=== PATIENT | female | born 1960 | race African-American/Black ===

== ENCOUNTER 2018-01-03 07:14 | Inpatient (IN) | payer MEDICARE ==
[2018-01-02 12:07] LABS: BASOPHILS % 0.3 % (0.0-1.0); EOSINOPHILS # (AUTO) 0.1 (0.0-0.4); EOSINOPHILS % 0.7 % (0.0-6.0); HEMATOCRIT 40.3 % (34.2-44.1); HEMOGLOBIN 12.4 g/dL (12.0-16.0); LYMPHOCYTES # (AUTO) 2.9 (1.0-3.2); LYMPHOCYTES % 28.5 % (18.0-39.1); MEAN CORPUSCULAR HEMOGLOBIN 25.5 pg (28-32); MEAN CORPUSCULAR HGB CONC 30.8 g/dL (31-35); MEAN CORPUSCULAR VOLUME 82.8 fL (81-99); MONOCYTES # (AUTO) 0.6 (0.2-0.8); MONOCYTES % 5.8 % (4.4-11.3); NEUTROPHILS # (AUTO) 6.5 (2.1-6.9); NEUTROPHILS % 64.3 % (38.7-80.0); PLATELET COUNT 307 x10e3/uL (140-360); RED BLOOD COUNT 4.87 x10e6/uL (3.6-5.1); RED CELL DISTRIBUTION WIDTH 15.6 % (11.7-14.4)
[2018-01-02 12:25] LABS: ANION GAP 16.2 mmol/L (8-16); BLOOD UREA NITROGEN 8 mg/dL (7-26); BUN/CREATININE RATIO 9 (6-25); CALCIUM 9.9 mg/dL (8.4-10.2); CARBON DIOXIDE 28 mmol/L (22-29); CHLORIDE 97 mmol/L (98-107); CREATININE, SERUM 0.93 mg/dL (0.57-1.11); EST GLOMERULAR FILTRATION RATE > 60 ML/MIN (60-); GLUCOSE 92 mg/dL (74-118); POTASSIUM 3.2 mmol/L (3.5-5.1); SODIUM 138 mmol/L (136-145)
[~2018-01-03] VITALS: Ht 175.3 cm; Wt 146.1 kg
[~2018-01-03 07:14] MED LIST: AMOX TR-K CLV1 EAC2 PO; BREO ELLIPTA INH; DEXILANT60 MG PO; DYMISTA NASAL S23 GM; FLUOXETINE HCL40 MG PEG; GABAPENTIN300 MG PO; GABAPENTIN600 MG PO; HYDROCHLOROTHIA25 MG PO; LEVOCETIRIZINE D5 MG PO; LOSARTAN POTASS25 MG PO; MELOXICAM7.5 MG PO; METFORMIN HCL500 MG PO; METHYLPREDNISOLO4 M1 PO; METOPROLOL TART25 MG PO; MUCINEX DM ER1 EAC1 PO; MYRBETRIQ25 MG PO; TRIAMCINOLONE A15 G1 TOP; VITAMIN D32000 UNIT PO
--- OUTSIDE RECORDS SUMMARY | 2018-01-03 07:17 | XMS REPORT | Clinical Summary ---
Author Author [facility] [employer] Organization [facility] Address Unknown Phone Unavailable Care Team Providers Care Avian Keeper Name Role Phone Amy Elias MD PCP Allergies No Known Allergies Current Medications Prescription Sig. Disp. Refills Start End Date Status Date metoprolol tartrate Take 25 mg by mouth 2 Active (LOPRESSOR) 25 mg tablet (two) times a day. FLUoxetine (PROzac) 40 MG Take 40 mg by mouth Active capsule nightly. gabapentin (NEURONTIN) Take 600 mg by mouth Active 600 mg tablet nightly. hydroCHLOROthiazide Take 25 mg by mouth every Active (HYDRODIURIL) 25 MG morning. tablet cholecalciferol, vitamin Take 4,000 Units by mouth Active D3, (VITAMIN D3) 2,000 every morning. unit capsule capsule montelukast (SINGULAIR) Take 10 mg by mouth Active 10 mg tablet nightly. esomeprazole (NexIUM) 40 Take 40 mg by mouth daily Active MG capsule before breakfast. losartan (COZAAR) 25 MG Take 25 mg by mouth every Active tablet morning. metFORMIN (GLUCOPHAGE) Take 500 mg by mouth 2 Active 500 mg tablet (two) times a day with meals. mometasone (NASONEX) 50 1 spray into each nostril Active mcg/actuation nasal spray daily as needed. cetirizine (ZyrTEC) 10 MG Take 10 mg by mouth every Active tablet morning. gabapentin (NEURONTIN) Take 300 mg by mouth Active 300 mg capsule every morning. meloxicam (MOBIC) 7.5 mg Take 7.5 mg by mouth 2 Active tablet (two) times a day. mirabegron 25 mg tablet Take 25 mg by mouth Active extended release 24 hr daily. phentermine (ADIPEX-P) Take 37.5 mg by mouth Active 37.5 mg tablet daily. oxyCODone-acetaminophen Take 1 tablet by mouth Active (PERCOCET) 10-325 mg per daily as needed for tablet moderate pain. Active Problems Problem Noted Date Palpitations 05/07/2016 Chest pain 05/06/2016 Encounters Date Type Specialty Care Team Description 05/08/2017 Hospital Radiology Bandar Milligan MD Sinus pressure Encounter 05/02/2017 Transcribe Access Bandar Milligan MD Sinus pressure (Primary Orders Dx) after 01/02/2017 Social History Tobacco Use Types Packs/Day Years Used Date Never Smoker Tobacco Cessation: Counseling Given: No Alcohol Use Drinks/Week oz/Week Comments No Sex Assigned at Date Recorded Not on file Last Filed Vital Signs Not on file Plan of Treatment Health Maintenance Due Date Last Done Comments CERVICAL CANCER SCREENING 1981 BREAST CANCER SCREENING 2010 COLON CANCER SCREENING 2010 SHINGRIX VACCINE (#1) 2010 INFLUENZA VACCINE 10/04/2017 Implants Implanted Type Area Physical Therapy Teacher Device Expiration Model / Identifier Date Serial / Lot Spinal Fusion Procedures Procedure Name Priority Date/Time Associated Diagnosis Comments CT SINUS WO CONTRAST Routine 05/08/2017 Sinus pressure Results for this 11:28 AM GOVERNMENT CONTRACTS MANAGER procedure are in the results section. after 01/02/2017 Results * CT Sinus Wo Contrast (05/08/2017 11:28 AM) Narrative Performed At EXAMINATION: CT SINUS WO CONTRAST [facility] CLINICAL HISTORY: J34.89 Other specified disorders of nose and nasal sinuses, J34.89 COMPARISON:None TECHNIQUE: Axial noncontrast enhanced images were obtained through the paranasal sinuses. Bone and soft tissue windows were displayed as well as coronal and sagittal reconstructed images. CT imaging was performed with iterative reconstruction techniques and/or automated exposure control to reduce radiation dose. FINDINGS: Right sinuses and drainage pathways Frontal sinus and frontal recess:The frontal sinus is clear and the frontoethmoidal recesses patent. Maxillary sinus and ostiomeatal unit:Moderate-sized mucous retention cyst is noted inferiorly in the right maxillary sinus. A second tiny mucous retention cyst is noted along the lateral wall. The ostiomeatal unit is patent. Ethmoid sinuses:The ethmoid air cells are clear. Sphenoid sinus and recess:The sphenoid sinus is clear and the sphenoethmoidal recess is patent. 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 The left frontal sinus and frontal recess are clear. Maxillary sinus and ostiomeatal unit:The maxillary sinuses clear. The ostiomeatal unit is unremarkable. Ethmoid sinuses:The ethmoid air cells are clear. Sphenoid sinus and recess:The sphenoid sinus is clear and the sphenoethmoidal recess is patent. Other pertinent findings Nasal cavity:Nasal septum is grossly midline. Turbinates are normal with no evidence of palak bullosa. Orbits:The visualized orbits are intact with no gross morphologic abnormality identified. Anterior cranial fossa:The anterior cranial fossa is normal with no significant anatomic variation. IMPRESSION: Detailed CT sinus exam shows no significant mucosal thickening, drainage pathway obstruction or acute air-fluid level. There is no significant anatomic variation identified. [id number] Procedure Note Hm Interface, Radiology Results Incoming - 05/08/2017 12:09 PM GOVERNMENT CONTRACTS MANAGER EXAMINATION: CT SINUS WO CONTRAST CLINICAL HISTORY: J34.89 Other specified disorders of nose and nasal sinuses, J34.89 COMPARISON: None TECHNIQUE: Axial noncontrast enhanced images were obtained through the paranasal sinuses. Bone and soft tissue windows were displayed as well as coronal and sagittal reconstructed images. CT imaging was performed with iterative reconstruction techniques and/or automated exposure control to reduce radiation dose. FINDINGS: Right sinuses and drainage pathways Frontal sinus and frontal recess: The frontal sinus is clear and the frontoethmoidal recesses patent. Maxillary sinus and ostiomeatal unit: Moderate-sized mucous retention cyst is noted inferiorly in the right maxillary sinus. A second tiny mucous retention cyst is noted along the lateral wall. The ostiomeatal unit is patent. Ethmoid sinuses: The ethmoid air cells are clear. Sphenoid sinus and recess: The sphenoid sinus is clear and the sphenoethmoidal recess is patent. 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 The left frontal sinus and frontal recess are clear. Maxillary sinus and ostiomeatal unit: The maxillary sinuses clear. The ostiomeatal unit is unremarkable. Ethmoid sinuses: The ethmoid air cells are clear. Sphenoid sinus and recess: The sphenoid sinus is clear and the sphenoethmoidal recess is patent. Other pertinent findings Nasal cavity: Nasal septum is grossly midline. Turbinates are normal with no evidence of palak bullosa. Orbits: The visualized orbits are intact with no gross morphologic abnormality identified. Anterior cranial fossa: The anterior cranial fossa is normal with no significant anatomic variation. IMPRESSION: Detailed CT sinus exam shows no significant mucosal thickening, drainage pathway obstruction or acute air-fluid level. There is no significant anatomic variation identified. [id number] Performing Organization Address City/State/Zipcode Phone Number [facility] [address] [facility] [place] [address] after 01/02/2017 Insurance Payer Benefit Subscriber ID Type Phone Address Plan / Group MEDICAID MEDICAID xxxxxxxxx Medicaid MEDICARE MEDICARE xxxxxxxxxx Medicare [place] [address]
--- OUTSIDE RECORDS SUMMARY | 2018-01-03 07:17 | XMS REPORT ---
Author [facility] Address Unknown Phone Unavailable Care Team Providers Care Handbook Writer Name Role Phone UNKNOWN, REFFERING PP Unavailable MELLO FULTON Unavailable Unavailable Problems This patient has no known problems. Allergies, Adverse Reactions, Alerts This patient has no known allergies or adverse reactions. Medications This patient has no known medications. Encounters Start Date/Time End Date/Time Encounter Type Admission Type Attending Clinicians Care Facility Care Department Encounter ID 2017-03-08 07:58:00 2017-03-08 07:58:00 Outpatient C [facility] [id number] 2016-07-14 08:32:00 2016-07-14 08:32:00 Outpatient C [facility] [id number] Results Test Description Test Time Test Comments Text Results Atomic Results Result Comments US RETROPERITONEAL 2017-03-08 10:54:59 EXAM: ULTRASOUND RENALINDICATION: ACUTE CYSTITIS WITHOUT HEMATURIACOMPARISON: None available TECHNIQUE: Larry scale and color mode imaging of kidneys and bladder wasperformed. FINDINGS:Right kidney m easures 11.7 x 4.9 x 4.8 cm and left kidney 10.9 x 5.0 x4.6 cm in length. No renal cortical thinning or abnormal parenchymalechogenicity. No hydronephrosis or obvious nephrolithiasis. Nosuspicious masses are identified.Bladder is well distended with bilateral ureteral jets visualized.Prevoid bladder volume measures 172 mL. Post-void bladder volumemeasures 4 mL. IMPRESSION: 1. No hydronephrosis or ultrasonographic evidence for medical-renaldisease. LOCATION: 16 Chlamydia/GC Amplification 2017-03-02 08:50:00 Chlamydia trachomatis, NAHOMI (test jitm=[id number]) Negative Negative Neisseria gonorrhoeae, NAHOMI (test bgjy=[id number]) Negative Negative Culture, [id number] 08:38:00Specimen: Urine, CC-MidstreamCollected: 02/27/2017 23:50 Status: Final Last Updated: 03/02/2017 08:38 (1) ER Bed 5 Isolate (Final) (Final) 03/01/17 <10,000 CFU/mL Beta Hemolytic Streptococcus Streptococcus agalactiae US [id number] 05:41:04US TRANSVAGINALLocation:J3Hsvqk [facility] services provided 02/28/2017 5:41 AMIndica tion:L Ovary Pain, s/p hysterectomyComparison:CT abdomen and pelvis from earlier the same day.Technique: Transvaginal sonographic larry scale, color and Doppleri maging was performed to the female pelvis.Findings:Uterus: Surgically absentRigh t ovary: Not visualized.Left ovary: Normal in size, echogenicity and blood flow measuring 1.2 x0.8 x 1.26 cm.Cul-de-sac: No free fluidImpression: 1. Nonvisualiz ation of the right ovary.2. Normal left ovary.69526&PELVIS W/[id number] 01:54:36CT ABDOMEN&PELVIS W/CONTRASTLocation:K0Yprte hours services provided 02/28/2017 1:54 AMIndication: LLQ and suprapubic abdominal pain, hComparison:None availableTechnique: Axial CT images were acquired through the abdomen and pelvisfollowing the bolus administration of intravenous contrast. Sagittal andcoronal reformatted images are provided for interpretation. All CT scansat this facility use dose modulation, iterative reconstruction, and/orweight-based dosing when appropriate to reduce radiation dose to as lowas reasonably possible.Findings:Lower thorax: Lung bases are clearHepatobiliary: The liver is normal in size and density. No intrahepaticbiliary duct dilatation is seen. Status post cholecystectomy.Spleen, pancreas and adrenal glands: NormalUrogenital: The kidneys are normal in size and density with no evidenceof stone or hydronephrosis. The ureters are normal in course andcaliber. The urinary bladder appears normal. Status post hysterectomy.Gastrointestinal: Colonic diverticulosis with no evidence ofdiverticulitis. The appendix is normal. The bowel is normal in courseand caliber. No free air or free flui d.Lymph nodes and retroperitoneum: No adenopathy or retroperitoneal mass.Vascula ture:No acute abnormality.Bones and soft tissues: Multilevel advanced degenerati ve disc disease ofthe thoracolumbar spine with vacuum phenomenon, endplate scler osis anddisc space narrowing. Findings are most evident at L5/S1.Impression: 1. Colonic diverticulosis with no evidence of diverticulitis.2. Advanced multilevel degenerative disc disease as above.Comprehensive Metabolic [id number] 00:26:00* Test Item Value Reference Range Comments Sodium (test code=NA) 138 mmol/L 135-145 Potassium (test code=K) 3.8 mmol/L 3.5-5.1 Chloride (test code=CL) 100 mmol/L 98-105 Carbon Dioxide (test code=CO2) 29 mmol/L 22-29 Glucose (test code=GLU) 102 mg/dL 70-115 Blood Urea Nitrogen (test code=BUN) 15 mg/dL 6-20 Creatinine (test code=CREAT) 1.0 mg/dL 0.5-0.9 Calcium (test code=CA) 9.1 mg/dL 8.3-10.5 Prot Total (test code=TP) 7.4 g/dL 6.4-8.3 Albumin (test code=ALB) 3.8 g/dL 3.5-5.2 A/G Ratio (test code=AGRATIO) 1.1 Ratio Globulin (test code=GLOB) 3.6 2.9-3.1 Bili Total (test code=TBIL) <0.1 mg/dL 0.1-0.9 Alk Phos (test code=APHOS) 87 U/L 35-104 AST (test code=AST) 17 U/L 1-32 ALT (test code=ALT) 16 U/L 1-33 BUN/Creatinine Ratio (test code=BCRATIO) 15.0 Anion Gap (test code=AGAP) 9 mmol/L 7-16 Estimated GFR (test code=GFR) >60 mL/min/1.73m2 eGFR (estimated Glomerular Filtration Rate) is an estimated value,calculated from the patient's serum creatinine using the MDRD equation.It is NOT the patient's actual GFR. The eGFR provides a more clinicallyuseful measure of kidney disease than serum creatinine alone.This calculation takes sex and race into account, if the informationis provided. If the race is not provided, and the patient isAfrican-St Helenian, multiply by 1.212. If sex is not provided, and thepatient is female, multiply by 0.742. Results for patients <18 years ofage have not been validated by the MDRD study and should be interpretedwith caution.eGFR Result Interpretation:eGFR > or=60 is in the Normal RangeeGFR < 60 may mean kidney diseaseeGFR < 15 may mean kidney failureRanges recommended by the National Kidney Foundat ion,http://nkdep.nih.gov [id number] 00:26:00* Test Item Value Reference Range Comments Lipase (test code=LIP) 26 U/L 13-60 CBC with [id number] 00:14:00* Test Item Value Reference Range Comments WBC (test code=WBC) 7.9 K/cumm 4.4-10.5 RBC (test code=RBC) 4.55 M/cumm 3.75-5.20 Hemoglobin (test code=HGB) 11.1 gm/dL 12.2-14.8 Hematocrit (test code=HCT) 37.0 % 36.5-44.4 MCV (test code=MCV) 81.3 fL 80-100 MCH (test code=MCH) 24.5 pg 27.0-32.5 MCHC (test code=MCHC) 30.1 g/dL 32.0-37.5 RDW (test code=RDW) 15.1 % 11.5-14.5 Platelet Count (test code=PLTCT) 268 K/cumm 140-440 MPV (test code=MPV) 9.4 fL Diff Method (test code=DIFFM) Auto Neutrophil (test code=NEUT) 57.1 % 36-70 Lymphocyte (test code=LYMPH) 33.9 % 12-44 Monocyte (test code=MONO) 4.7 % 0-11 Eosinophil (test code=EOS) 3.8 % 0-7 Basophil (test code=BASO) 0.6 % 0-2 Neutro Abs (test code=ANEUT) 4.5 K/cumm 1.6-7.4 Lymph Abs (test code=ALYMPH) 2.7 K/cumm 0.5-4.6 [place] Abs (test code=AMONO) 0.4 K/cumm 0.0-1.2 Eos Abs (test code=AEOS) 0.30 K/cumm 0.00-0.74 Baso Abs (test code=ABASO) 0.1 K/cumm 0.00-0.21 Hypochromic (test code=HYPO) Moderate Urinalysis [id number] 00:10:00* Test Item Value Reference Range Comments Color (test code=COLOR) Yellow Yellow,Straw,Pl yellow Clarity (test code=CLAR) Clear Clear Specific [place] (test code=SPGR) 1.018 1.001-1.035 pH (test code=PH) 7.0 5.0-9.0 Ketone (test code=KET) Negative mg/dL Negative Glucose (test code=GLUCUR) Negative mg/dL Negative Protein (test code=PROT) Negative mg/dL Negative Bilirubin (test code=BILI) Negative mg/dL Negative Occult Blood (test code=UDOB) Negative Negative Urobilinogen (test code=UROB) 0.2 mg/dL 0.2-1.0 Nitrite (test code=NIT) Negative Negative Leuk Esterase (test code=LEUK) Negative Negative Micros Exam (test code=MEXAM) Not indicated
[2018-01-03] MEDS ORDERED: BUPIVACAINE 0.25% 30ML SDV INJ ONE (07:34)
[2018-01-03] MEDS ORDERED: HYDROGEN PEROXIDE 120 ML BTL ONE (07:35)
[2018-01-03] MEDS ORDERED: MULTIVITAMIN 50+ PO (07:42)
[2018-01-03] MEDS: LACTATED RINGER'S 1,000 ML IV SCH ×2 (09:11→18:46)
[2018-01-03] MEDS ORDERED: SCOPOLAMINE 1.5 MG PATCH TOP SCH (09:15)
[2018-01-03] MEDS ORDERED: ONDANSETRON HCL INJ 2 MG/ML VIAL IV PRN (09:15)
[2018-01-03] MEDS ORDERED: ONDANSETRON HCL INJ 2 MG/ML VIAL ONE ×2 (11:30→18:12)
[2018-01-03] MEDS ORDERED: HYDROMORPHONE 2MG/ML 2 MG/ML ML ONE (11:34)
[2018-01-03] MEDS ORDERED: METOCLOPRAMIDE HCL 10 MG/2ML VIAL ONE (11:43)
[2018-01-03 12:00] VITALS: BP 124/60
[2018-01-03 12:18] VITALS: BP 124/60
--- NOTE | 2018-01-03 12:41 | Operative Report ---
DATE OF PROCEDURE: January 03, 2018 PREOPERATIVE DIAGNOSES 1. Morbid obesity, body mass index 47. 2. Obstructive sleep apnea. 3. Type 2 diabetes mellitus. 4. Hypertension. POSTOPERATIVE DIAGNOSES 1. Morbid obesity, body mass index 47. 2. Obstructive sleep apnea. 3. Type 2 diabetes mellitus. 4. Hypertension. PREOP MEDICATIONS: Treat disease, prevent complications related to comorbid conditions of obesity. PROCEDURE PERFORMED: Laparoscopic sleeve gastrectomy (CPT 60906). ANESTHESIA: General. PRESS CLEANER: Cayden Coelho, Surgical Mailroom Coordinator. FLUIDS: 900 mL crystalloid. EBL: 35 mL. DRAINS: None. COMPLICATIONS: None. SPECIMENS: Partial stomach (not sent to pathology, but opened at the back table). GRAFTS: None. FINDINGS 1. Kvgrjgib-nq-mevkby adhesions in the lesser sac from the greater curvature of the stomach posteriorly. 2. Otherwise normal upper GI anatomy. 3. Negative intraoperative EGD leak test. PROCEDURAL DETAILS: The patient was brought to the operating room and was intubated under general endotracheal anesthesia. She was positioned supine with both arms abducted and all pressure points appropriately padded. She was sterilely prepped and draped in the usual fashion. A preprocedural pause was performed, identifying the patient and the use of perioperative antibiotics, the intended procedure, and the staff surgeon. A primary 5-mm left subcostal incision was made and a Veress needle was inserted to insufflate the abdomen to a pressure of 15 mmHg pressure. A 0-degree 5-mm Optiview trocar was placed under direct visualization. No injuries were noted. Four additional trocars were placed in the standard positions. The patient was then placed in a sleep reverse Trendelenburg position, and a liver retractor was placed to expose the proximal stomach and hiatus. I began the dissection by mobilizing the greater curvature of the stomach by ligating the gastroepiploic, short gastric, and posterior short gastric vessels all the way up to the left otis of the diaphragm. Of note, there was severe adhesive reaction between the posterior stomach and the area anterior to the pancreas as well as from the greater curvature of the stomach to the left upper quadrant. These adhesions were carefully lysed, being careful not to injure the stomach or any vascular structures. Once the stomach was completely mobilized, I then inserted an adult-size endoscope along the lesser curvature of the stomach to be used as a bougie. I then completed my sleeve gastrectomy by stapling off about 75% of the stomach, the greater curvature. I then conducted an intraoperative EGD leak test. No leaks were identified. The specimen was removed through the right periumbilical port site and was opened at the back table revealed no gross abnormalities. I then closed the large port site with 0 Vicryl suture using the Darwin-Elizabeth technique. Hemostasis was verified and the liver retractor was removed. I then desufflated the abdomen and removed the trocars. We then closed the incision site with a 4-0 Monocryl suture in a subcuticular fashion. We used 0.25% bupivacaine in both the preperitoneal incision sites. Dermabond dressings were applied. The patient tolerated the procedure well. Type of wound is type 3, contaminated. Job#: [id number] LPA
--- OUTSIDE RECORDS SUMMARY | 2018-01-03 12:44 | XMS REPORT | Clinical Summary ---
Author Author [facility] Organization [facility] Address Unknown Phone Unavailable Care Team Providers Care Subsea Engineer Name Role Phone Amy Elias MD PCP [...] INFLUENZA VACCINE 10/04/2017 Implants Implanted Type Area Internet Webmaster Device Expiration Model / Identifier Date Serial / Lot Spinal Fusion Procedures Procedure Name Priority Date/Time Associated Diagnosis Comments CT SINUS WO CONTRAST Routine 05/08/2017 Sinus pressure Results for this 11:28 AM FORCE DISPATCHER procedure are in the results section. after [...] There is no significant anatomic variation identified. [id number] Procedure Note Hm Interface, Radiology Results Incoming - 05/08/2017 12:09 PM FORCE DISPATCHER EXAMINATION: CT SINUS WO CONTRAST CLINICAL HISTORY: [...] There is no significant anatomic variation identified. [id number] Performing Organization Address City/State/Zipcode Phone Number [facility] [address] [facility] [place] [address] after 01/02/2017 Insurance Payer Benefit Subscriber ID Type Phone Address Plan / Group MEDICAID MEDICAID xxxxxxxxx Medicaid MEDICARE MEDICARE xxxxxxxxxx Medicare [place], [place] [address]
[2018-01-03 12:45] VITALS: BP 124/60
--- OUTSIDE RECORDS SUMMARY | 2018-01-03 12:45 | XMS REPORT | Clinical Summary ---
Author Author [facility] Address Unknown Phone Unavailable Care Team Providers Care Electric Stove Installer Name Role Phone Amy Elias MD Unavailable Unavailable Amy Elias MD PCP Unavailable Allergies No Known Allergies Medications End Date Status Medication Sig Dispensed Refills Start Date Active esomeprazole (NEXIUM) 40 Take 40 mg by 0 MG capsule mouth daily. Active metoprolol (LOPRESSOR) 50 Take 50 mg by 0 MG tablet mouth 2 (two) times daily. Active hydrochlorothiazide Take 25 mg by 0 (HYDRODIURIL) 25 MG mouth daily. tablet Active fluticasone-salmeterol Inhale 2 0 (ADVAIR) 250-50 mcg/dose puffs by diskus inhaler mouth via inhaler every 12 (twelve) hours. Active FLUoxetine (PROZAC) 40 MG Take 40 mg by 0 capsule mouth daily. Active albuterol (PROVENTIL Inhale 2 0 HFA;VENTOLIN HFA) 90 puffs by mcg/actuation inhaler mouth via inhaler every 6 (six) hours as needed. Active solifenacin (VESICARE) 10 Take 10 mg by 0 MG tablet mouth daily. Active montelukast (SINGULAIR) Take 10 mg by 0 10 mg tablet mouth nightly. Active meloxicam (MOBIC) 15 MG Take 15 mg by 0 tablet mouth daily. Active azithromycin (ZITHROMAX) . 0 250 MG tablet 6 Active ADVAIR DISKUS 500-50 . 0 mcg/dose diskus inhaler 6 Active gabapentin (NEURONTIN) . 0 600 MG tablet 6 Active tiZANidine (ZANAFLEX) 4 . 0 05/08/201 MG tablet 6 Active ergocalciferol (VITAMIN Take 50,000 0 D2) 50,000 unit capsule Units by mouth once a week. Active metFORMIN (GLUCOPHAGE) Take 500 mg 0 500 MG tablet by mouth 2 (two) times daily with breakfast and dinner. Active losartan (COZAAR) 25 MG Take 25 mg by 0 tablet mouth daily. Active Problems Not on file Family History Medical History Relation Name Comments Diabetes Father Hypertension Father Diabetes Mother Hypertension Mother Relation Name Status Comments Father Mother Social History Date Tobacco Use Types Packs/Day Years Used Never Smoker Smokeless Tobacco: Never Used Alcohol Use Drinks/Week oz/Week Comments No Sex Assigned at Date Recorded Not on file Industry Job Start Date Occupation Not on file Not on file Not on file Travel End Travel History Travel Start No recent travel history available. Last Filed Vital Signs Not on file Plan of Treatment Not on file Results Not on fileafter 01/02/2017 Insurance Payer Benefit Subscriber ID Type Phone Address Plan / Group MEDICARE MEDICARE A xxxxxxxxxx Medicare B MEDICAID MEDICAID xxxxxxxxx Medicaid OF [place]
[2018-01-03] MEDS ORDERED: POTASSIUM CHLORIDE 20MEQ/100ML 100 ML IV ONE (13:00)
[2018-01-03] MEDS: MORPHINE SULFATE 2 MG/ML SYR IV PRN ×2 (13:25→18:47)
[2018-01-03] MEDS ORDERED: DEXTROSE 50% SYRINGE 50 ML IV PRN (14:45)
[2018-01-03] MEDS: INSULIN LISPRO 100 UNIT/1 ML 3ML VIAL SQ SCH ×2 (16:30→21:00)
[2018-01-03 17:07] VITALS: BP 100/70
[2018-01-03] MEDS ORDERED: LIDOCAINE HCL 2% LOCAL INJ 5 ML SDV VIAL INJ ONE (18:12)
[2018-01-03] MEDS ORDERED: NEOSTIGMINE 5 MG/5ML SYR ONE (18:12)
[2018-01-03] MEDS ORDERED: ROCURONIUM BROMIDE 10 MG/ML 5ML VIAL ONE (18:12)
[2018-01-03] MEDS ORDERED: DESFLURANE 240 ML BTL INH ONE (18:12)
[2018-01-03] MEDS ORDERED: ACETAMINOPHEN 1000 MG/100 ML IV ONE (18:12)
[2018-01-03] MEDS ORDERED: DEXAMETHASONE SOD PHOS INJ 4 MG/ML VIAL ONE (18:12)
[2018-01-03] MEDS ORDERED: PROPOFOL IV EMULSION 10 MG/ML 20 ML VIAL ONE (18:12)
[2018-01-03] MEDS ORDERED: EPHEDRINE SULFATE INJ 50 MG/10 ML SYR ONE (18:12)
[2018-01-03] MEDS ORDERED: GLYCOPYRROLATE INJ 1MG/ 5 ML SYR ONE (18:12)
[2018-01-03] MEDS ORDERED: FENTANYL CITRATE/PF 100MCG/2 ML INJ ONE (18:18)
[2018-01-03] MEDS ORDERED: MIDAZOLAM HCL 2 MG/2 ML VIAL ONE (18:18)
[2018-01-03] MEDS: ENOXAPARIN SOD INJ 40 MG/0.4 ML SYR SC SCH (18:46)
[2018-01-03 20:00] VITALS: BP 122/66
--- NOTE | 2018-01-03 20:03 | History and Physical ---
REASON FOR ADMISSION: Laparoscopic gastrectomy. HISTORY OF PRESENT ILLNESS: This is a pleasant 57-year-old woman who underwent elective laparoscopy sleeve gastrectomy today. The patient tolerated the surgery quite well. However, during the surgery, she was found to have [id number]-ep-[id number] adhesions in the lesser sac from the greater curvature of the stomach posteriorly. Patient is currently voicing no complaints. REVIEW OF SYSTEMS GENERAL: Patient steadily gained weight over the last couple of years according to her . No fever or chills. HEENT: No headaches. No vision changes. CARDIOVASCULAR/RESPIRATORY: No chest pain. No shortness of breath or cough. GI: States her abdominal pain currently is controlled at this time. : No Peacock catheter in place. NEUROMUSCULAR: Denies any focal numbness, but she has diabetic peripheral neuropathy. PAST MEDICAL HISTORY 1. Extreme obesity, BMI is 45. 2. Hypertensive heart disease. 3. Type 2 diabetes mellitus with neuropathy. 4. Obstructive sleep apnea. 5. Fibromyalgia. 6. Overactive bladder. 7. GERD. 8. Depression. SURGICAL HISTORY 1. Laparoscopic sleeve gastrectomy today. 2. Hysterectomy. 3. Cholecystectomy. 4. Left knee arthroscopy. 5. Cervical spine surgery. FAMILY HISTORY: Multiple family members with type 2 diabetes mellitus. SOCIAL HISTORY: This woman is . Lives with her . She is unemployed, but receiving disability benefits. No history of tobacco or alcohol use. ALLERGIES: NO KNOWN DRUG ALLERGIES. HOME MEDICATIONS 1. Dymista one spray at each nostril daily. 2. Vitamin B3 2000 units daily. 3. Dexilant 60 mg daily. 4. Fluoxetine 40 mg daily. 5. Gabapentin 300 mg during the day, 600 mg at night. 6. Hydrochlorothiazide 25 mg daily. 7. Xyzal 5 mg daily. 8. Losartan 25 mg daily. 9. Meloxicam 7.5 mg b.i.d. 10. Metformin 500 mg b.i.d. 11. Metoprolol tartrate 25 mg b.i.d. 12. Myrbetriq 25 mg once a day. 13. Triamcinolone acetonide apply to the affected area daily. 14. Breo Ellipta 1 puff daily. 15. Multivitamins daily. PHYSICAL EXAMINATION GENERAL: She is somnolent but arousable. She is in no obvious distress. Her is at bedside. VITAL SIGNS: Height 5 feet 9 inches, weight 307 pounds, BMI is 45. Blood pressure is 124/60, pulse 62, respiratory rate 16, ox saturation is 95%, temperature 96.6. INTEGUMENT: Skin is warm and dry. No pallor, jaundice, or diaphoresis. HEENT: Anicteric sclerae. Moist mucous membranes. NECK: Supple. CARDIOVASCULAR: Regular rate and rhythm. LUNGS: No rales. No rhonchi or wheezing. ABDOMEN: Obese yet, benign. Her laparoscopic wounds are currently dressed. No bowel sounds are auscultated at this time. EXTREMITIES: No edema or deformity. She has sequential compression devices in place. NEUROLOGIC: Intact. No gross focal deficits appreciated. IMPRESSION 1. Status post laparoscopic sleeve gastrectomy. 2. Extreme obesity, body mass index 45. 3. Type 2 diabetes mellitus with neuropathy. 4. Hypertensive heart disease. 5. Obstructive sleep apnea. PLAN 1. Encourage incentive spirometry use. 2. Mobilize. 3. Continue SCDs and enoxaparin for deep venous thrombosis prophylaxis. 4. Continue home medications. 5. We will check complete blood count and comprehensive metabolic profile in the morning. I spent 45 minutes in the care of the patient. Job#: [id number] KELLY
[2018-01-03 20:05] VITALS: BP 122/66
[2018-01-04] VITALS (49 sets, daily range): BP systolic 60–126; BP diastolic 38–87
[2018-01-04] MEDS: MORPHINE SULFATE 2 MG/ML SYR IV PRN (01:42)
[2018-01-04] MEDS: LACTATED RINGER'S 1,000 ML IV SCH ×3 (01:52→15:45)
[2018-01-04] MEDS: INSULIN LISPRO 100 UNIT/1 ML 3ML VIAL SQ SCH ×5 (05:00→21:00)
[2018-01-04 06:01] LABS: BASOPHILS % 0.2 % (0.0-1.0); EOSINOPHILS % 0.2 % (0.0-6.0); HEMOGLOBIN 9.8 g/dL (12.0-16.0); LYMPHOCYTES # (AUTO) 3.1 (1.0-3.2); LYMPHOCYTES % 27.6 % (18.0-39.1); MEAN CORPUSCULAR HEMOGLOBIN 25.5 pg (28-32); MEAN CORPUSCULAR HGB CONC 30.6 g/dL (31-35); MEAN CORPUSCULAR VOLUME 83.3 fL (81-99); MONOCYTES # (AUTO) 0.6 (0.2-0.8); MONOCYTES % 5.4 % (4.4-11.3); NEUTROPHILS # (AUTO) 7.3 (2.1-6.9); NEUTROPHILS % 66.1 % (38.7-80.0); PLATELET COUNT 328 x10e3/uL (140-360); RED BLOOD COUNT 3.84 x10e6/uL (3.6-5.1); RED CELL DISTRIBUTION WIDTH 15.5 % (11.7-14.4)
[2018-01-04 06:11] LABS: ALANINE AMINOTRANSFERASE 39 IU/L (0-55); ALBUMIN 2.9 g/dL (3.5-5.0); ALBUMIN/GLOBULIN RATIO 0.9 (0.8-2.0); ALKALINE PHOSPHATASE 59 IU/L (40-150); ANION GAP 15.1 mmol/L (8-16); BLOOD UREA NITROGEN 10 mg/dL (7-26); BUN/CREATININE RATIO 10 (6-25); CALCIUM 9.2 mg/dL (8.4-10.2); CARBON DIOXIDE 27 mmol/L (22-29); CHLORIDE 101 mmol/L (98-107); CREATININE, SERUM 0.97 mg/dL (0.57-1.11); EST GLOMERULAR FILTRATION RATE > 60 ML/MIN (60-); GLUCOSE 188 mg/dL (74-118); MAGNESIUM 1.9 MG/DL (1.3-2.1); PHOSPHORUS 3.2 MG/DL (2.3-4.7); POTASSIUM 3.1 mmol/L (3.5-5.1); SODIUM 140 mmol/L (136-145)
[2018-01-04] MEDS ORDERED: HYDROCODONE/APAP 7.5MG-325MG 1 EA TAB PO PRN ×2 (07:15→13:15)
[2018-01-04] MEDS ORDERED: POTASSIUM CHLORIDE 20 MEQ TAB CR PO STA (08:02)
[2018-01-04 08:08] LABS: BASOPHILS % 0.1 % (0.0-1.0); EOSINOPHILS % 0.2 % (0.0-6.0); HEMATOCRIT 31.3 % (34.2-44.1); HEMOGLOBIN 9.5 g/dL (12.0-16.0); LYMPHOCYTES # (AUTO) 2.6 (1.0-3.2); LYMPHOCYTES % 18.9 % (18.0-39.1); MEAN CORPUSCULAR HEMOGLOBIN 25.7 pg (28-32); MEAN CORPUSCULAR HGB CONC 30.4 g/dL (31-35); MEAN CORPUSCULAR VOLUME 84.6 fL (81-99); MONOCYTES # (AUTO) 0.4 (0.2-0.8); MONOCYTES % 3.2 % (4.4-11.3); NEUTROPHILS # (AUTO) 10.3 (2.1-6.9); NEUTROPHILS % 75.3 % (38.7-80.0); PLATELET COUNT 315 x10e3/uL (140-360); RED CELL DISTRIBUTION WIDTH 15.6 % (11.7-14.4)
[2018-01-04] MEDS ORDERED: SODIUM CHLORIDE 0.9% 1000ML 500 ML IV ONE (08:15)
[2018-01-04 08:32] LABS: ALBUMIN 2.8 g/dL (3.5-5.0); ALBUMIN/GLOBULIN RATIO 0.8 (0.8-2.0); ANION GAP 18.8 mmol/L (8-16); CALCIUM 9.1 mg/dL (8.4-10.2); CREATININE, SERUM 1.44 mg/dL (0.57-1.11)
[2018-01-04 08:35] LABS: POTASSIUM 2.8 mmol/L (3.5-5.1)
[2018-01-04] MEDS ORDERED: POTASSIUM CHLORIDE 20MEQ/100ML 200 ML IV ONE (08:45)
[2018-01-04] MEDS ORDERED: DIATRIZOATE MEGL/DIATRIZOA SOD 30 ML BTL PO ONE (09:33)
[2018-01-04] MEDS ORDERED: POTASSIUM CHLORIDE 20 MEQ TAB CR PO SCH (10:00)
[2018-01-04 10:03] LABS: BAND NEUTROPHILS % (MANUAL) 2 %; LYMPHOCYTES % (MANUAL) 17 % (19-48); METAMYELOCYTES % (MANUAL) 1 % (0-0); MONOCYTES % (MANUAL) 2 % (3.4-9.0); NEUTROPHILS % (MANUAL) 78 % (40-74); PLATELET ESTIMATE ADEQUATE; PLATELET MORPHOLOGY COMMENT NORMAL; RBC MORPHOLOGY COMMENT NORMAL
--- NOTE | 2018-01-04 10:39 | Diagnostic Imaging Report ---
EXAM: CT Abdomen and Pelvis WITHOUT contrast INDICATION: Abdominal pain. Hypotension. Prior surgery. Sleeve gastrectomy. COMPARISON: None. TECHNIQUE: Abdomen and pelvis were scanned utilizing a multidetector helical scanner from the lung base to the pubic symphysis without administration of IV contrast. Absence of intravenous contrast decreases sensitivity for detection of focal lesions and vascular pathology. Coronal and sagittal reformations were obtained. Routine protocol was performed. IV CONTRAST: None. ORAL CONTRAST: Gastrografin RADIATION DOSE: Total DLP: 913.22 mGy*cm Estimated effective dose: (DLP x 0.015 x size factor) mSv COMPLICATIONS: None FINDINGS: LINES and TUBES: None. LOWER THORAX: Mild scarring/atelectasis at the lung bases. HEPATOBILIARY: Nodular contour of the liver could be due to cirrhosis. No focal hepatic lesions. No biliary ductal dilation. There is a small amount of fluid surrounding the liver. GALLBLADDER: Surgical clips in the gallbladder fossa. SPLEEN: No splenomegaly. High density fluid is seen surrounding the spleen and along the inferior margin of the left hemidiaphragm. This is best seen on coronal reformatted image 78 through 98. Small foci of air are seen within this fluid. This is worrisome for blood/hemorrhage. PANCREAS: No focal masses or ductal dilatation. ADRENALS: No adrenal nodules KIDNEYS/URETERS: No hydronephrosis. No cystic or solid mass lesions. No stones. GI TRACT: No abnormal distention, wall thickening, or evidence of bowel obstruction. Scattered diverticulosis without evidence of diverticulitis. Contrast material is seen in the distal esophagus, stomach and proximal small bowel. PELVIC ORGANS/BLADDER: Unremarkable. LYMPH NODES: No lymphadenopathy. VESSELS: Unremarkable. PERITONEUM / RETROPERITONEUM: Small amount of free fluid in the pelvis could be physiologic and/or postsurgical. BONES: Scattered degenerative change. SOFT TISSUES: Numerous air foci are seen in the subcutaneous fat of the left abdomen.. IMPRESSION: Findings worrisome for splenic laceration with a large amount of high density fluid seen surrounding the spleen and along the inferior margin of the left hemidiaphragm. This contains a small amount of air foci and is worrisome for blood/hemorrhage. Limited study without the use of IV contrast. Findings discussed with Dr. Rodriguez by Dr. Velez on January 04, 2018 at 10:25 AM Signed by: Dr. Will Velez M.D. on 01/04/2018 10:35 AM
--- NOTE | 2018-01-04 10:44 | Diagnostic Imaging Report ---
EXAMINATION: CHEST SINGLE (PORTABLE) INDICATION: Hypotension. Recent surgery. COMPARISON: None FINDINGS: TUBES and LINES: Metallic hardware seen over the lower cervical spine. LUNGS: Elevation of the left hemidiaphragm. Lungs are clear. There is no evidence of pneumonia or pulmonary edema. PLEURA: No pleural effusion or pneumothorax. HEART AND MEDIASTINUM: The cardiomediastinal silhouette is unremarkable. The patient is rotated to the right. BONES AND SOFT TISSUES: No acute osseous lesion. Soft tissues are unremarkable. IMPRESSION: Elevation of the left hemidiaphragm. Signed by: Dr. Will Velez M.D. on 01/04/2018 10:41 AM
[2018-01-04] MEDS ORDERED: FIBRIN FROZEN 2 ML SPRAY.GEL TOP ONE (11:29)
[2018-01-04] MEDS ORDERED: BUPIVACAINE 0.25% 30ML SDV INJ ONE (11:40)
[2018-01-04] MEDS: SODIUM CHLORIDE 0.9% 1000ML 1,000 ML IV SCH ×2 (13:01→21:01)
[2018-01-04] MEDS ORDERED: FENTANYL CITRATE/PF 100MCG/2 ML INJ ONE ×2 (13:10→14:56)
[2018-01-04] MEDS ORDERED: MORPHINE SULFATE 2 MG/ML SYR IV PRN (13:15)
[2018-01-04] MEDS ORDERED: ONDANSETRON HCL INJ 2 MG/ML VIAL IV PRN (13:15)
[2018-01-04] MEDS ORDERED: SODIUM CHLORIDE 0.9% 50ML 50 ML ONE (14:00)
[2018-01-04] MEDS ORDERED: IOPAMIDOL 370 MG/ML 200 ML INFUS..BTL INJ ONE (14:00)
--- NOTE | 2018-01-04 14:29 | Operative Report ---
DATE OF PROCEDURE: January 04, 2018 PREOPERATIVE DIAGNOSIS: Intra-abdominal hematoma. POSTOPERATIVE DIAGNOSIS: Intra-abdominal hematoma. PREOPERATIVE INDICATION: Treat disease, prevent bleeding-related complications. OPERATION PERFORMED: Diagnostic laparoscopy with evacuation of intra-abdominal hematoma (CPT 46329). ANESTHESIA: General. ASSISTANTS: None. DRAINS: None. COMPLICATIONS: None. SPECIMENS: None. GRAFTS: None. FINDINGS: A large amount of clotted hematoma along the gastric sleeve staple line as well as anterior to the stomach between the anterior surface of the stomach and the posterior surface of the left lobe of the liver. PATIENT DETAILS: This is a 57-year-old female who is status post a laparoscopic sleeve gastrectomy for morbid obesity on January 03, 2018. The patient became hypotensive with systolic blood pressures in the 60s early this morning. She did respond to some IV fluid boluses. Her hemoglobin had dropped from 12.3 preop to 9.5 g/dl postop. Given her clinical findings and laboratory results, I ordered a CT scan which showed a large amount of hematoma along the left upper quadrant. Given these findings, I decided to emergently take her to the operating room for exploration. PROCEDURAL DETAILS: The patient was brought to the operating room and was intubated under general endotracheal anesthesia. She was sterilely prepped and draped in the usual fashion. A preprocedural pause was performed, identifying the patient and the use of perioperative antibiotics, intended procedure and the staff surgeon. A secondary left subcostal incision was made through the same incision from yesterday. A Veress needle was inserted, and we insufflated the abdomen to a pressure of 15 mmHg pressure. I then placed 4 additional trocars in the standard positions. The patient was put in a reverse Trendelenburg position, and a liver retractor was placed. There was a large amount of clotted hematoma found in the left upper quadrant. This was painstakingly suctioned off, and we were able to assess the gastric sleeve line, the left upper quadrant near the splenic hilum as well as the right upper quadrant. There was no active bleeding identified. I did insert an adult-sized endoscope and studied the sleeve from the intraluminal aspect. No intraluminal bleeding was identified. I then removed the endoscope and suctioned the stomach off prior to doing this. After evacuating about a liter of clotted blood, I then decided to desufflate the abdomen and remove the trocars and close the large port site with 0 Vicryl suture using the Darwin-Elizabeth technique. The liver retractor was removed. Incision sites were then stapled shut with the skin-stapling device. We put Band-Aids on the dressings. The patient tolerated the procedure well. Type of wound is type 1, clean. Job#: [id number] EV
[2018-01-04] MEDS ORDERED: PHENYLEPHRINE HCL 1% 10 MG/ML VIAL ONE (14:56)
[2018-01-04] MEDS ORDERED: MIDAZOLAM HCL 2 MG/2 ML VIAL ONE (14:56)
[2018-01-04] MEDS ORDERED: SEVOFLURANE INHAL SOLN 250 ML PEN BTL ONE (14:56)
[2018-01-04] MEDS ORDERED: ONDANSETRON HCL INJ 2 MG/ML VIAL ONE (14:56)
[2018-01-04] MEDS ORDERED: SUCCINYLCHOLINE 200 MG/10 ML SYR ONE (14:56)
[2018-01-04] MEDS ORDERED: LIDOCAINE HCL 2% LOCAL INJ 5 ML SDV VIAL INJ ONE (14:56)
[2018-01-04] MEDS ORDERED: NEOSTIGMINE 5 MG/5ML SYR ONE (14:56)
[2018-01-04] MEDS ORDERED: EPHEDRINE SULFATE INJ 50 MG/10 ML SYR ONE (14:56)
[2018-01-04] MEDS ORDERED: ROCURONIUM BROMIDE 10 MG/ML 5ML VIAL ONE (14:56)
[2018-01-04] MEDS ORDERED: GLYCOPYRROLATE INJ 1MG/ 5 ML SYR ONE (14:56)
[2018-01-04] MEDS ORDERED: VASOPRESSIN INJ 20 UNIT/ML VIAL ONE (14:56)
[2018-01-04] MEDS ORDERED: DEXAMETHASONE SOD PHOS INJ 4 MG/ML VIAL ONE (14:56)
[2018-01-04] MEDS ORDERED: PROPOFOL IV EMULSION 10 MG/ML 20 ML VIAL ONE (14:56)
[2018-01-04] MEDS: ENOXAPARIN SOD INJ 40 MG/0.4 ML SYR SC SCH (15:54)
[2018-01-04 16:01] LABS: HEMATOCRIT 26.1 % (34.2-44.1)
[2018-01-04 16:19] LABS: CARBON DIOXIDE 27 mmol/L (22-29); CHLORIDE 103 mmol/L (98-107); POTASSIUM 3.7 mmol/L (3.5-5.1); SODIUM 140 mmol/L (136-145)
[2018-01-04 16:20] LABS: ANION GAP 13.7 mmol/L (8-16); BLOOD UREA NITROGEN 12 mg/dL (7-26); BUN/CREATININE RATIO 12 (6-25); CALCIUM 8.5 mg/dL (8.4-10.2); CREATININE, SERUM 1.01 mg/dL (0.57-1.11); EST GLOMERULAR FILTRATION RATE > 60 ML/MIN (60-)
[2018-01-04 16:55] LABS: GLUCOSE 129 mg/dL (74-118)
[2018-01-04] MEDS: ALBUTEROL/IPRATROPIUM 3 ML NEB NEB SCH ×2 (19:15→22:30)
[2018-01-05] VITALS (58 sets, daily range): BP systolic 89–132; BP diastolic 50–95
[2018-01-05] MEDS: SODIUM CHLORIDE 0.9% 1000ML 1,000 ML IV SCH (01:18)
[2018-01-05] MEDS: ALBUTEROL/IPRATROPIUM 3 ML NEB NEB SCH ×6 (02:25→23:00)
[2018-01-05 04:47] LABS: BASOPHILS % 0.2 % (0.0-1.0); EOSINOPHILS % 0.2 % (0.0-6.0); HEMATOCRIT 23.6 % (34.2-44.1); HEMOGLOBIN 7.2 g/dL (12.0-16.0); LYMPHOCYTES # (AUTO) 2.3 (1.0-3.2); LYMPHOCYTES % 19.7 % (18.0-39.1); MEAN CORPUSCULAR HEMOGLOBIN 25.6 pg (28-32); MEAN CORPUSCULAR HGB CONC 30.5 g/dL (31-35); MONOCYTES # (AUTO) 0.9 (0.2-0.8); MONOCYTES % 7.5 % (4.4-11.3); NEUTROPHILS # (AUTO) 8.5 (2.1-6.9); NEUTROPHILS % 71.7 % (38.7-80.0); PLATELET COUNT 236 x10e3/uL (140-360); RED BLOOD COUNT 2.81 x10e6/uL (3.6-5.1); RED CELL DISTRIBUTION WIDTH 15.8 % (11.7-14.4)
[2018-01-05 05:06] LABS: ALANINE AMINOTRANSFERASE 43 IU/L (0-55); ALBUMIN 2.4 g/dL (3.5-5.0); ALBUMIN/GLOBULIN RATIO 0.8 (0.8-2.0); ALKALINE PHOSPHATASE 53 IU/L (40-150); ANION GAP 14.7 mmol/L (8-16); BLOOD UREA NITROGEN 10 mg/dL (7-26); BUN/CREATININE RATIO 12 (6-25); CALCIUM 8.4 mg/dL (8.4-10.2); CARBON DIOXIDE 26 mmol/L (22-29); CHLORIDE 106 mmol/L (98-107); CREATININE, SERUM 0.85 mg/dL (0.57-1.11); EST GLOMERULAR FILTRATION RATE > 60 ML/MIN (60-); GLUCOSE 140 mg/dL (74-118); POTASSIUM 3.7 mmol/L (3.5-5.1); SODIUM 143 mmol/L (136-145)
[2018-01-05] MEDS ORDERED: SODIUM CHLORIDE 0.9% 250ML 250 ML IV NR (06:45)
[2018-01-05] MEDS: INSULIN LISPRO 100 UNIT/1 ML 3ML VIAL SQ SCH ×3 (07:30→21:00)
[2018-01-05 18:55] LABS: HEMATOCRIT 24.9 % (34.2-44.1)
[2018-01-05] MEDS: BISACODYL 10 MG SUPP PR SCH (22:01)
[2018-01-06 00:36] VITALS: BP 98/52
[2018-01-06 04:00] VITALS: BP 111/54
[2018-01-06 05:32] LABS: BASOPHILS % 0.3 % (0.0-1.0); EOSINOPHILS # (AUTO) 0.3 (0.0-0.4); EOSINOPHILS % 2.1 % (0.0-6.0); HEMATOCRIT 25.4 % (34.2-44.1); HEMOGLOBIN 8.1 g/dL (12.0-16.0); LYMPHOCYTES # (AUTO) 2.1 (1.0-3.2); LYMPHOCYTES % 16.9 % (18.0-39.1); MEAN CORPUSCULAR HEMOGLOBIN 27.2 pg (28-32); MEAN CORPUSCULAR HGB CONC 31.9 g/dL (31-35); MEAN CORPUSCULAR VOLUME 85.2 fL (81-99); MONOCYTES # (AUTO) 1.1 (0.2-0.8); MONOCYTES % 8.3 % (4.4-11.3); NEUTROPHILS % 71.8 % (38.7-80.0); PLATELET COUNT 200 x10e3/uL (140-360); RED BLOOD COUNT 2.98 x10e6/uL (3.6-5.1); RED CELL DISTRIBUTION WIDTH 15.8 % (11.7-14.4)
[2018-01-06 05:47] LABS: ALANINE AMINOTRANSFERASE 36 IU/L (0-55); ALBUMIN 2.5 g/dL (3.5-5.0); ALBUMIN/GLOBULIN RATIO 0.8 (0.8-2.0); ALKALINE PHOSPHATASE 53 IU/L (40-150); ANION GAP 12.2 mmol/L (8-16); BLOOD UREA NITROGEN 8 mg/dL (7-26); BUN/CREATININE RATIO 11 (6-25); CALCIUM 8.6 mg/dL (8.4-10.2); CARBON DIOXIDE 29 mmol/L (22-29); CHLORIDE 105 mmol/L (98-107); CREATININE, SERUM 0.72 mg/dL (0.57-1.11); EST GLOMERULAR FILTRATION RATE > 60 ML/MIN (60-); GLUCOSE 104 mg/dL (74-118); POTASSIUM 3.2 mmol/L (3.5-5.1); SODIUM 143 mmol/L (136-145)
[2018-01-06] MEDS: INSULIN LISPRO 100 UNIT/1 ML 3ML VIAL SQ SCH ×2 (07:30→11:05)
[2018-01-06 08:26] VITALS: BP 109/57
[2018-01-06] MEDS: ALBUTEROL/IPRATROPIUM 3 ML NEB NEB SCH ×2 (08:50→11:27)
[2018-01-06 09:00] VITALS: BP 109/57
[2018-01-06] MEDS: BISACODYL 10 MG SUPP PR SCH (09:30)
[2018-01-06] MEDS ORDERED: POTASSIUM CHLORIDE 20MEQ/15ML UDC NG NR (11:15)
[2018-01-06 12:14] VITALS: BP 118/60
[2018-01-06 16:00] VITALS: BP 102/56
--- NOTE | 2018-01-10 10:47 | Discharge Summary ---
ADMITTING DIAGNOSES 1. Status post laparoscopic sleeve gastrectomy. 2. Extreme obesity, body mass index 45. 3. Type-2 diabetes with neuropathy. 4. Hypertensive heart disease. 5. Obstructive sleep apnea. DISCHARGE DIAGNOSES 1. Status post laparoscopic sleeve gastrectomy. 2. Acute renal failure, resolved. 3. Extreme obesity, body mass index 45. 4. Type-2 diabetes mellitus with neuropathy. 5. Hypertensive heart disease. 6. Obstructive sleep apnea. 7. Status post diagnostic laparoscopy with evacuation of intra-abdominal hematoma. 8. Posthemorrhagic anemia secondary to sleeve gastrectomy, resolved. 9. Status post blood transfusion (2 units). This is a 57-year-old woman who was admitted to [facility] for elective sleeve gastrectomy due to her extreme obesity. The patient tolerated the surgery well. Unfortunately, she developed postoperative anemia as well as profound hypotension. The patient was transferred to the intensive care unit. CT of the abdomen and pelvis revealed findings consistent with left upper quadrant intra-abdominal hematoma. Thus, the patient's bariatric surgeon, namely Dr. Mikey Casey, took the patient back to the operating room and performed a diagnostic laparoscopy with evacuation of intra-abdominal hematoma. The patient tolerated the surgery well. During this hospitalization, the patient was transfused 2 units of packed red blood cells. The patient's hospitalization was unremarkable. On the day of discharge, the hemoglobin was 8.1 g/dL. On January 02, 2018, the patient's hemoglobin was 12.4 g/dL. The patient's BUN and creatinine did get as high as 11 and 1.44 during this hospitalization; but on the day of discharge, the patient's BUN and creatinine were 8 and 0.72. The patient's condition on discharge was stable. DISCHARGE MEDICATIONS 1. Dymista 1 spray to each nostril daily. 2. Vitamin D3 2,000 units daily. 3. Dexilant 60 mg daily. 4. Fluoxetine 40 mg daily. 5. Gabapentin 300 mg in the morning and 600 mg at night. 6. Hydrochlorothiazide 25 mg daily. 7. Xyzal 5 mg daily. 8. Losartan 25 mg daily. 9. Metformin 500 mg b.i.d. 10. Metoprolol tartrate 25 mg b.i.d. 11. Myrbetriq 25 mg daily. 12. Triamcinolone acetonide applied to the affected area daily. 13. Breo Ellipta 1 puff daily. 14. Multivitamin once daily. The patient was instructed to stop meloxicam. The patient was also instructed to avoid all NSAIDs. FOLLOWUP INSTRUCTIONS: The patient was instructed to follow up with Dr. Mikey Casey within 1 to 2 weeks. The patient will follow up with her primary care physician also within the next 10 to 14 days. GENOVEVA TAMEZ MD Job#: [id number] cc:MIKEY CASEY MD
== END 2018-01-06 17:05 | disposition home or self-care (01) | DRG 620 ==
LOC: OR 07:14 → PACU V 11:03 → MED/SURG 13:13 → ICU 01-04 11:20 → MED/SURG 01-05 18:52
PROVIDERS: ADMIT Internal Medicine; ATTEND Internal Medicine
PROC: 0DJ08ZZ Inspection of Upper Intestinal Tract, Via Natural or Artificial Opening Endoscopic (ICD-10-PCS; 2018-01-03)
PROC: 0DB64Z3 Excision of Stomach, Percutaneous Endoscopic Approach, Vertical (ICD-10-PCS; principal; 2018-01-03 09:30)
PROC: 0D9W40Z Drainage of Peritoneum with Drainage Device, Percutaneous Endoscopic Approach (ICD-10-PCS; 2018-01-04)
DX: E66.01 Morbid (severe) obesity due to excess calories (principal); D62 Acute posthemorrhagic anemia; K91.870 Postprocedural hematoma of a digestive system organ or structure following a digestive system procedure; K95.89 Other complications of other bariatric procedure; Z68.42 Body mass index [BMI] 45.0-49.9, adult; G47.33 Obstructive sleep apnea (adult) (pediatric); E11.43 Type 2 diabetes mellitus with diabetic autonomic (poly)neuropathy; Z79.4 Long term (current) use of insulin; I11.9 Hypertensive heart disease without heart failure; F50.89 Other specified eating disorder; N32.81 Overactive bladder; M79.7 Fibromyalgia; K21.0 Gastro-esophageal reflux disease with esophagitis
CPT/HCPCS: 36415; 71045; 74176; 80048; 80053; 82550; 82553; 82948; 83735; 84100; 84132; 84484; 85014; 85018; 85025; 86850; 86900; 86920; 93005; 93041; 94640; J1100; J1650; J2001; J2250; J2270; J2370; J2405; J2765; J3480; J7030; J7050; J7120; P9016; Q9967

== ENCOUNTER 2018-06-10 18:04 | Emergency (ER) | payer MEDICARE ==
[~2018-06-10] VITALS: Ht 175.3 cm; Wt 146.1 kg
[~2018-06-10 18:04] MED LIST changes: +MULTIVITAMIN 50+ PO
--- OUTSIDE RECORDS SUMMARY | 2018-06-10 18:06 | XMS REPORT | Clinical Summary ---
Author Author [facility] Address Unknown Phone Unavailable Care Team Providers Care Farm Technician Name Role Phone Amy Elias MD PCP Allergies No Known Allergies Medications End Date Status Medication Sig Dispensed Refills Start Date Active metoprolol tartrate Take 25 mg by 0 (LOPRESSOR) 25 mg tablet mouth 2 (two) times a day. Active FLUoxetine (PROzac) 40 MG Take 40 mg by 0 capsule mouth nightly. Active gabapentin (NEURONTIN) Take 600 mg 0 600 mg tablet by mouth nightly. Active hydroCHLOROthiazide Take 25 mg by 0 (HYDRODIURIL) 25 MG mouth every tablet morning. Active cholecalciferol, vitamin Take 4,000 0 D3, (VITAMIN D3) 2,000 Units by unit capsule capsule mouth every morning. Active montelukast (SINGULAIR) Take 10 mg by 0 10 mg tablet mouth nightly. Active esomeprazole (NexIUM) 40 Take 40 mg by 0 MG capsule mouth daily before breakfast. Active losartan (COZAAR) 25 MG Take 25 mg by 0 tablet mouth every morning. Active metFORMIN (GLUCOPHAGE) Take 500 mg 0 500 mg tablet by mouth 2 (two) times a day with meals. Active mometasone (NASONEX) 50 1 spray into 0 mcg/actuation nasal spray each nostril daily as needed. Active cetirizine (ZyrTEC) 10 MG Take 10 mg by 0 tablet mouth every morning. Active gabapentin (NEURONTIN) Take 300 mg 0 300 mg capsule by mouth every morning. Active meloxicam (MOBIC) 7.5 mg Take 7.5 mg 0 tablet by mouth 2 (two) times a day. Active mirabegron 25 mg tablet Take 25 mg by 0 extended release 24 hr mouth daily. Active phentermine (ADIPEX-P) Take 37.5 mg 0 37.5 mg tablet by mouth daily. Active oxyCODone-acetaminophen Take 1 tablet 0 (PERCOCET) 10-325 mg per by mouth tablet daily as needed for moderate pain. Active Problems Problem Noted Date Palpitations 05/07/2016 Chest pain 05/06/2016 Social History Date Tobacco Use Types Packs/Day Years Used Never Smoker Tobacco Cessation: Counseling Given: No [...] CANCER SCREENING 2010 COLON CANCER SCREENING 2010 SHINGLES VACCINES (#1) 2010 INFLUENZA VACCINE 10/04/2018 Implants Device Identifier Shelf Expiration Date Model / Serial / Lot Implanted Type Area Manufactur er Spinal Fusion Results Not on fileafter 06/09/2017 Insurance Payer Benefit Subscriber ID Type Phone Address Plan / Group MEDICAID MEDICAID xxxxxxxxx Medicaid MEDICARE MEDICARE xxxxxxxxxx Medicare [place], [place] PART A AND B Advance Directives Patient has advance care planning documents, and code status on file. For more i nformation, please contact: Toan Dhillon [address] [place] [address] Date Inactivated Comments Code Status Date Activated 05/07/2016 4:58 PM Full Code 05/06/2016 8:59 PM Code Status decision reached by: Patient
--- OUTSIDE RECORDS SUMMARY | 2018-06-10 18:07 | XMS REPORT | Clinical Summary ---
Author Author [facility] Address Unknown Phone Unavailable Care Team Providers Care Violin Restorer Name Role Phone Amy Elias MD Unavailable [...] Not on file Results Not on fileafter 06/09/2017 Insurance Payer Benefit Subscriber ID Type Phone Address Plan / Group MEDICARE MEDICARE A xxxxxxxxxx Medicare B MEDICAID MEDICAID xxxxxxxxx Medicaid OF [place]
--- OUTSIDE RECORDS SUMMARY | 2018-06-10 18:07 | XMS REPORT | Continuity of Care Document ---
Author Author [facility] Address Unknown Phone Unavailable Problems Problem Status Onset Date Classification Date Reported Comments Source [facility] Medications Medication Details Route Status Patient Instructions Ordering Provider Order Date Source Allergies, Adverse Reactions, Alerts Substance Category Reaction Severity Reaction type Status Date Reported Comments Source Immunizations Immunization Date Given Site Status Last Updated Comments Source Results Order Name Results Value Reference Range Date Interpretation Comments Source Vital Signs Vital Sign Value Date Comments Source Encounters Location Location Details Encounter Type Encounter Number Reason For Visit Attending Provider ADM Date DC Date Status Source [facility] OP Therapy Patients [id number] Marvin Moss III 01/22/2015 02/21/2015 [facility] Procedures Procedure Code Date Perfomer Comments Source
--- OUTSIDE RECORDS SUMMARY | 2018-06-10 18:07 | XMS REPORT | Summary of Care ---
Author Author [facility] Address Unknown Phone Unavailable Care Team Providers Care Tool Profiling Machine Set Up Operator Name Role Phone PCP Unavailable Encounter [facility] Mildredr_radames(FIN) [id number] Date(s): 01/22/15 - 02/20/15 [facility] Discharge Disposition: Home Attending Physician: Marvin Hirsch MD Vital Signs No data available for this section Problem List No data available for this section Allergies, Adverse Reactions, Alerts No data available for this section Medications No data available for this section Results No data available for this section Immunizations No data available for this section Procedures No data available for this section Social History No data available for this section Assessment and Plan No data available for this section
[2018-06-10] MEDS ORDERED: ASPIRIN 81 MG CHEW TAB PO ONE (19:00)
--- NOTE | 2018-06-10 19:25 | Diagnostic Imaging Report ---
Examination: Single AP view of the chest. COMPARISON: None. INDICATION: Epigastric pain DISCUSSION: Lines/tubes: None. Lungs: The lungs are well inflated and clear. No pneumonia or pulmonary edema. Pleura: No pleural effusion or pneumothorax. Heart and mediastinum: The heart and the mediastinum are unremarkable. Bones and soft tissues: No acute bony abnormalities. IMPRESSION: 1. No acute cardiopulmonary abnormalities. Signed by: Dr. Alan Thompson M.D. on 06/10/2018 7:21 PM
[2018-06-10 19:26] LABS: BASOPHILS % 0.5 % (0.0-1.0); EOSINOPHILS # (AUTO) 0.1 (0.0-0.4); EOSINOPHILS % 1.9 % (0.0-6.0); HEMATOCRIT 39.6 % (34.2-44.1); LYMPHOCYTES # (AUTO) 2.8 (1.0-3.2); LYMPHOCYTES % 43.6 % (18.0-39.1); MEAN CORPUSCULAR HEMOGLOBIN 26.2 pg (28-32); MEAN CORPUSCULAR HGB CONC 30.3 g/dL (31-35); MEAN CORPUSCULAR VOLUME 86.5 fL (81-99); MONOCYTES # (AUTO) 0.4 (0.2-0.8); MONOCYTES % 6.4 % (4.4-11.3); NEUTROPHILS % 47.4 % (38.7-80.0); PLATELET COUNT 219 x10e3/uL (140-360); RED BLOOD COUNT 4.58 x10e6/uL (3.6-5.1); RED CELL DISTRIBUTION WIDTH 16.3 % (11.7-14.4)
[2018-06-10 19:40] LABS: ALANINE AMINOTRANSFERASE 10 IU/L (0-55); ALBUMIN 3.3 g/dL (3.5-5.0); ALBUMIN/GLOBULIN RATIO 0.8 (0.8-2.0); ALKALINE PHOSPHATASE 71 IU/L (40-150); AMYLASE 53 U/L (25-125); ANION GAP 11.6 mmol/L (8-16); BLOOD UREA NITROGEN 12 mg/dL (7-26); BUN/CREATININE RATIO 14 (6-25); CALCIUM 9.7 mg/dL (8.4-10.2); CARBON DIOXIDE 26 mmol/L (22-29); CHLORIDE 107 mmol/L (98-107); CREATINE KINASE 71 IU/L (29-168); CREATININE, SERUM 0.83 mg/dL (0.57-1.11); EST GLOMERULAR FILTRATION RATE > 60 ML/MIN (60-); GLUCOSE 83 mg/dL (74-118); LIPASE 11 U/L (8-78); POTASSIUM 3.6 mmol/L (3.5-5.1); SODIUM 141 mmol/L (136-145)
[2018-06-10 20:19] VITALS: BP 134/93
== END 2018-06-10 20:26 | disposition home or self-care (01) ==
LOC: ER 18:04
DX: R10.13 Epigastric pain (principal); Z98.84 Bariatric surgery status; I10 Essential (primary) hypertension; E11.9 Type 2 diabetes mellitus without complications; K21.9 Gastro-esophageal reflux disease without esophagitis; M79.7 Fibromyalgia; M06.9 Rheumatoid arthritis, unspecified
CPT/HCPCS: 36415; 71045; 80053; 82150; 82550; 82553; 83690; 83880; 84484; 85025; 93005; 99284